=== PATIENT | female | born 1960 | race Two or more races ===

== ENCOUNTER → 2021-10-14 | Outpatient (CLI) | payer OTHER ==
[~2021-10-14] MED LIST: FEMARA2.5 MG PO; PERCOCET 5/325 T1 EA PO; PROTONIX40 MG PO; TRAZODONE HCL50 MG PO; TYLENOL PM EX-1 EACH PO
== END ==
LOC: MAMO 14:10
DX: Z12.39 Encounter for other screening for malignant neoplasm of breast (principal); C50.412 Malignant neoplasm of upper-outer quadrant of left female breast; Z79.899 Other long term (current) drug therapy; Z79.52 Long term (current) use of systemic steroids
CPT/HCPCS: 77066; G0279